=== PATIENT | female | born 1960 | race Caucasian/White ===

== ENCOUNTER → 2020-05-24 | Day surgery (SDC) | payer OTHER ==
[~2020-05-24] MED LIST: CINNAMON PO; CLINORIL 200MG200 MG PO; CRANBERRY250 MG PO; CYMBALTA 30 MG30 MG PO; DULOXETINE HCL60 MG PO; FISH OIL PO; HAIR, SKIN & N1 EAC2 PO; HYDROXYCHLOROQ200 MG PO; LEVOTHYROXINE112 MC1 PO; NORTRIPTYLINE H10 MG PO; PRAVASTATIN SOD80 MG PO; ROBAXIN 750 MG750 MG PO; TORADOL 10 MG T10 MG PO; TRAMADOL HCL50 MG PO; TRIAMTERENE-HC1 EAC4 PO; VITAMIN B-6 PO; VITAMIN C1000 MG PO; WOMEN'S DAILY1 EACH PO; ZYLOPRIM 300 M300 MG PO; ZYRTEC10 MG PO
== END | disposition home or self-care (01) ==
LOC: OR 11:50
PROVIDERS: Urology
PROC: 0TJB8ZZ Inspection of Bladder, Via Natural or Artificial Opening Endoscopic (ICD-10-PCS; principal; 2020-05-24 13:30)
DX: R33.9 Retention of urine, unspecified (principal); R39.16 Straining to void; F32.9 Major depressive disorder, single episode, unspecified; E78.5 Hyperlipidemia, unspecified; E03.9 Hypothyroidism, unspecified; I10 Essential (primary) hypertension; Z88.8 Allergy status to other drugs, medicaments and biological substances; Z79.899 Other long term (current) drug therapy
CPT/HCPCS: 82962; J7040

== ENCOUNTER → 2020-09-13 | Outpatient (CLI) | payer OTHER ==
[2020-09-13 12:42] LABS: HEMOGLOBIN 11.9 gm/dl (12.3-15.3); RED BLOOD COUNT 3.96 M/UL (4.00-5.10); WHITE BLOOD COUNT 8.3 K/UL (4.5-11.0)
[2020-09-14 15:10] LABS: A/G RATIO 1.1 (0.7-1.7); ALBUMIN 3.5 g/dL (2.9-4.4); ALPHA-1-GLOBULIN 0.2 g/dL (0.0-0.4); ALPHA-2-GLOBULIN 0.8 g/dL (0.4-1.0); BETA GLOBULIN 1.1 g/dL (0.7-1.3); GAMMA GLOBULIN 1.1 g/dL (0.4-1.8); GLOBULIN, TOTAL 3.3 g/dL (2.2-3.9); M-SPIKE Not Observed g/dL (Not Observed); PROTEIN, TOTAL, SERUM 6.8 g/dL (6.0-8.5)
[2020-09-16 00:09] LABS: TRAMADOL Positive (Cutoff=200); TRAMADOL See Final Results ng/mL (Cutoff=200); TRAMADOL GC/MS CONF 18150 ng/mL (Cutoff=100)
== END ==
LOC: LAB 10:47
PROVIDERS: Internal Medicine
DX: Z51.81 Encounter for therapeutic drug level monitoring (principal); R79.82 Elevated C-reactive protein (CRP); R70.0 Elevated erythrocyte sedimentation rate; R53.82 Chronic fatigue, unspecified
CPT/HCPCS: 36415; 80053; 80307; 82728; 84155; 84165; 85025; 85652; 86140

== ENCOUNTER → 2020-10-01 | Outpatient (CLI) | payer OTHER | LOC: KOH-I 12:18 | DX: R10.2 Pelvic and perineal pain (principal); M16.11 Unilateral primary osteoarthritis, right hip | CPT/HCPCS: 73502 ==

== ENCOUNTER → 2021-01-28 | Outpatient (CLI) | payer OTHER ==
[2021-01-28 13:13] LABS: BORDETELLA PARAPERTUSSIS Not Detected (Not Detectd); BORDETELLA PERTUSSIS Not Detected (Not Detectd); CHLAMYDIA PNEUMONIAE Not Detected (Not Detectd); CORONAVIRUS HKU1 Not Detected (Not Detectd); CORONAVIRUS NL63 Not Detected (Not Detectd); CORONAVIRUS OC43 Not Detected (Not Detectd); CORONOAVIRUS 229E Not Detected (Not Detectd); HUMAN METAPNEUMOVIRUS Not Detected (Not Detectd); HUMAN RHINOVIRUS/ENTEROVIRUS Not Detected (Not Detectd); INFLUENZA A Not Detected (Not Detectd); INFLUENZA B Not Detected (Not Detectd); MYCOPLASMA PNEUMONIAE Not Detected (Not Detectd); PARAINFLUENZA VIRUS 1 Not Detected (Not Detectd); PARAINFLUENZA VIRUS 2 Not Detected (Not Detectd); PARAINFLUENZA VIRUS 3 Not Detected (Not Detectd); PARAINFLUENZA VIRUS 4 Not Detected (Not Detectd)
[2021-01-28 14:53] LABS: SARS-CoV-2 NOT DETECTED (Not Detectd)
[2021-01-28 14:54] LABS: RESPIRATORY SYNCYTIAL VIRUS DETECTED (Not Detectd)
== END ==
LOC: LAB 12:11
PROVIDERS: Physician Assistant
DX: R50.9 Fever, unspecified (principal); R05 Cough; J32.9 Chronic sinusitis, unspecified; R09.89 Other specified symptoms and signs involving the circulatory and respiratory systems; Z20.822 Contact with and (suspected) exposure to COVID-19
CPT/HCPCS: 36415; 87633

== ENCOUNTER → 2021-10-13 | Outpatient (CLI) | payer MEDICARE, OTHER | LOC: RAD 09:56 | DX: M25.512 Pain in left shoulder (principal); M19.012 Primary osteoarthritis, left shoulder | CPT/HCPCS: 73030 ==

== ENCOUNTER → 2021-11-01 | Outpatient (CLI) | payer MEDICARE, OTHER | LOC: KOH-I 13:00 | DX: M25.512 Pain in left shoulder (principal); R29.898 Other symptoms and signs involving the musculoskeletal system; M25.612 Stiffness of left shoulder, not elsewhere classified | CPT/HCPCS: 73221 ==